=== PATIENT | female | born 2005 | race Two or more races ===

== ENCOUNTER 2023-04-13 14:32 | Emergency (ER) | payer OTHER ==
[2023-04-13 14:42] VITALS: BP 128/77; PULSE 96; RESP 18; TEMP 98.1; BMI 21.6
[2023-04-13 16:23] LABS: BASO % 0.3 % (0-2.0); EOS % 0.8 % (0-4.5); HEMATOCRIT 34.7 % (32.4-45.2); HEMOGLOBIN 11.9 GM/dL (10.7-15.3); LYMPH % 34.9 % (8-40); MCH 29.7 pg (25.7-33.7); MCHC 34.3 g/dl (32.0-36.0); MEAN CELL VOLUME 86.6 fl (80-96); MEAN PLT VOLUME 8.3 fl (7.5-11.1); MONO % 12.4 % (3.8-10.2); NEUT % 51.6 % (42.8-82.8); PLATELET COUNT 230 10^3/uL (134-434); RDW 14.5 % (11.6-15.6); WHITE BLOOD COUNT 6.3 K/mm3 (4.0-10.0)
[2023-04-13 16:24] LABS: PH,URINE 5.5 (5.0-8.0); URINE APPEARANCE CLEAR; URINE BILIRUBIN NEGATIVE (NEGATIVE); URINE COLOR YELLOW; URINE GLUCOSE (UA) NEGATIVE (NEGATIVE); URINE KETONE NEGATIVE (NEGATIVE); URINE LEUK ESTERASE NEGATIVE (NEGATIVE); URINE NITRITE NEGATIVE (NEGATIVE); URINE PROTEIN NEGATIVE (NEGATIVE); URINE UROBILINOGEN 0.2 mg/dL (0.2-1.0)
[2023-04-13 16:45] LABS: POTASSIUM 4.1 mmol/L (3.5-5.1)
[2023-04-13 16:47] LABS: CALCIUM 8.8 mg/dL (8.5-10.1)
[2023-04-13 16:48] LABS: ALBUMIN 3.6 g/dl (3.4-5.0); BLOOD UREA NITROGEN 10.2 mg/dL (7-18)
[2023-04-13 16:50] LABS: BILIRUBIN,DIRECT 0.1 mg/dL (0.0-0.2)
[2023-04-13 16:51] LABS: CREATININE 0.7 mg/dL (0.55-1.3)
[2023-04-13 16:52] LABS: BILIRUBIN,TOTAL 0.2 mg/dL (0.2-1); TOT PROT 7.4 g/dl (6.4-8.2)
== END 2023-04-13 19:21 | disposition home or self-care (01) ==
LOC: JER 14:32
DX: O26.891 Other specified pregnancy related conditions, first trimester (principal); R10.2 Pelvic and perineal pain; Z3A.01 Less than 8 weeks gestation of pregnancy
CPT/HCPCS: 36415; 76817-TC; 80048; 80076; 81003; 84702; 85025; 86850; 86900; 86901; 87086; 87186; 99284-25